=== PATIENT | male | born 1950 | race Two or more races ===

== ENCOUNTER → 2024-09-22 | Outpatient (CLI) | payer MEDICARE, BC, SELFPAY ==
--- NOTE | 2024-09-22 | XR_ITS ---
Examination: CT abdomen and pelvis without contrast. Coronal 3-D reconstructions. Sagittal 2-D reconstructions. Date and time of exam:September 22, 2024 1310 hrs. Indications: Onset left lower abdominal pain and hematuria episodes beginning 6 months ago, history bilateral kidney stones on CT stone study December 04, 2019 CTDI: vol (mGy): 7.26 DLP: (mGycm): 401 Technique: Axial images of the abdomen have been obtained, 3 mm slice thickness Intravenous contrast material has not been administered. Low dose protocols were performed. One or more of the following dose reduction techniques were used; automated exposure control, adjustment of the mA and/or KV according to patient size, use of iterative reconstruction technique. Findings: No focal liver or splenic lesions Absent gallbladder No pancreatic mass Nodular thickening left adrenal gland Multiple bilateral 1 to 3 mm renal calculi, no hydronephrosis or ureteral calculi Normal appendix No bowel obstruction Extensive colonic diverticulosis, no diverticulitis Abnormal uterus, multiple irregular enlarged masses in the uterine body and fundus as well as abnormal enlargement of the cervix Prominent right ovary Prominent osteopenia Impression: Multiple bilateral nonobstructing renal calculi, no hydronephrosis or ureteral calculi No bladder mass or bladder calculi Recommend pelvic sonography follow-up to assess multiple uterine and possibly cervical masses as well as enlarged right ovary
== END | disposition home or self-care (01) ==
LOC: CDIM 11:38
PROVIDERS: PCP Internal Medicine; Referring Provider Internal Medicine; Visit Provider Internal Medicine
DX: N20.0 Calculus of kidney (principal)
CPT/HCPCS: 74176

== ENCOUNTER → 2024-09-23 | Outpatient (CLI) | payer MEDICARE, BC, SELFPAY ==
[2024-09-23 13:11] LABS: Collection Type, Urine Clean Catch; Squamous Epithelial Cell,Urine 0 /hpf (0-5)
[2024-09-23 13:41] LABS: Basophils # (Auto) 0.1 Thou/mm3 (0.0-0.2); Basophils % (Auto) 0 % (0-2.5); Eosinophils % (Auto) 0 % (0-10); Hematocrit 43.7 % (41.0-53.0); Hemoglobin 14.9 g/dL (13.5-16.0); Immature Granulocytes % (Auto) 1 % (0-0); Immature Granulocytes Auto 0.06 Thou/mm3 (0.00-0.00); Lymphocytes # (Auto) 2.3 Thou/mm3 (1.0-4.8); Lymphocytes % (Auto) 19 % (10-50); Mean Corpuscular HGB Conc 34.1 g/dl (31.0-37.0); Mean Corpuscular Hemoglobin 31.8 pg (25.0-35.0); Mean Corpuscular Volume 93 fL (80-100); Monocytes # (Auto) 0.6 Thou/mm3 (0.0-0.8); Monocytes % (Auto) 5 % (0-12); Neutrophils # (Auto) 9.1 Thou/mm3 (1.8-7.7); Neutrophils % (Auto) 75 % (37-80); Nucleated Red Blood Cell % 0 /100 WBC (0); Platelet Count 340 Thou/mm3 (140-440); Red Blood Count 4.69 Miln/mm3 (4.50-5.90); White Blood Count 12.2 Thou/mm3 (3.8-10.6)
[2024-09-23 13:47] LABS: Bilirubin,Urine Negative (Negative); Blood,Urine 2+ (Negative); Clarity,Urine Clear (Clear/Hazy); Color,Urine Lt-Yellow (Lt Yel-Yel); Glucose, Urine Negative (Negative); Ketones,Urine Negative (Negative); Leukocyte Esterase,Urine Negative (Negative); Nitrite,Urine Negative (Negative); Protein,Urine 1+ (Neg - Trace); RBC,Urine 68 /hpf (0-3); Specific Gravity,Urine 1.024 (1.001-1.035); Urobilinogen,Urine Negative mg/dL (0.0-1.0); WBC,Urine 9 /hpf (0-5)
[2024-09-23 13:51] LABS: Glucose Estimated Average 126 mg/dL (80-131)
[2024-09-23 13:52] LABS: PSA Medicare Annual Scrn 5.99 ng/mL (0-4.00)
[2024-09-23 13:57] LABS: Alanine Aminotransferase 22 U/L (10-49); Albumin, Serum 4.6 gm/dL (3.4-4.8); Alkaline Phosphatase 92 U/L (46-116); Anion Gap 9 (7-16); Aspartate Amino Transferase 16 U/L (0-34); BUN/Creatinine Ratio 19 Ratio (12-20); Bilirubin,Total 0.9 mg/dL (0.3-1.2); Blood Urea Nitrogen 19 mg/dL (9-23); Calcium 9.6 mg/dL (8.3-10.6); Calcium (Corrected) 9.6 mg/dL (8.5-10.1); Carbon Dioxide 27.3 mMol/L (20.0-31.0); Chloride 107 mMol/L (98-107); Cholesterol 132 mg/dL (132-200); Globulin 2.3 gm/dL (2.3-3.5); Glucose 114 mg/dL (74-106); HDL Cholesterol 44 mg/dL (40-60); LDL Cholesterol,Calculated 72 mg/dL (0-130); Osmolality,Calculated 288 (275-295); Potassium 4.1 mMol/L (3.4-5.1); Sodium 143 mMol/L (136-145); Thyroid Stimulating Hormone 3.34 uIU/mL (0.55-4.78); Total Protein 6.9 gm/dL (5.7-8.2); Triglycerides 82 mg/dL (30-150); Uric Acid 4.5 mg/dL (3.7-9.2); eGFR > 60 See Note
[2024-09-23 13:59] LABS: Vitamin B12 353 pg/mL (211-911); Vitamin D 25 Hydroxy Total 10.7 ng/mL (7.3-40.2)
== END | disposition home or self-care (01) ==
PROVIDERS: PCP Internal Medicine; Referring Provider Internal Medicine; Visit Provider Surgery
DX: Z00.00 Encounter for general adult medical examination without abnormal findings (principal); N20.0 Calculus of kidney; E11.9 Type 2 diabetes mellitus without complications; R31.9 Hematuria, unspecified; R97.20 Elevated prostate specific antigen [PSA]; D51.9 Vitamin B12 deficiency anemia, unspecified
CPT/HCPCS: 36415; 80053; 80061; 81001; 82306; 82607; 83036; 84153; 84443; 84550; 85025; G0103

== ENCOUNTER → 2025-01-17 | Outpatient (CLI) | payer MEDICARE, BC, SELFPAY ==
--- NOTE | 2025-01-17 13:00 | XR_ITS ---
Examination: CT abdomen and pelvis without contrast. Coronal 3-D reconstructions. Sagittal 2-D reconstructions. Date and time of exam:January 17, 2025 1310 hours Comparison September 22, 2024 INDICATIONS: History multiple kidney stones, hematuria right lower abdominal pain left lower abdominal pain 6 months CTDI: vol (mGy): 720 DLP: (mGycm): 409 Technique: Axial images of the abdomen have been obtained, 3 mm slice thickness Intravenous contrast material has not been administered. Low dose protocols were performed. One or more of the following dose reduction techniques were used; automated exposure control, adjustment of the mA and/or KV according to patient size, use of iterative reconstruction technique. Findings: No intra or extra hepatic biliary tract dilatation Absent gallbladder No pancreatic mass Minimal nodular thickening left adrenal gland 2 mm 1 mm lower pole right renal calculi 2 mm lower pole left renal calculus No ureteral calculi or hydronephrosis Aorta normal size Normal appendix No bowel obstruction Colonic diverticulosis, no diverticulitis Enlarged uterus with areas of calcified fibroid degeneration Lower uterine segment appears prominent Intact urinary bladder Hemangiomatous change L5 T11 IMPRESSION: Nonobstructing bilateral renal calculi Normal appendix Enlarged uterus including cervix, recommend transvaginal transducer abdominal pelvic sonography follow-up
== END | disposition home or self-care (01) ==
LOC: CCTX 12:39
PROVIDERS: PCP Internal Medicine; Referring Provider Surgery; Visit Provider Surgery
DX: N20.0 Calculus of kidney (principal)
CPT/HCPCS: 74176

== ENCOUNTER 2025-03-07 06:20 | Day surgery (SDC) | payer MEDICARE, BC, SELFPAY ==
--- NOTE | 2025-03-02 07:51 | EKG_ITS ---
[facility] Test Date: 2025-03-02 Pat Name: TU MARTINEZ Department: Room: - Gender: Male Tub Mender: ELSY : 1950 Requested By: Leonides Doherty Order Number: [id number] Reading MD: Leonides Doherty Measurements Intervals [place] Rate: 71 P: 62 OK: 203 QRS: 51 QRSD: 102 T: 49 QT: 390 QTc: 424 Interpretive Statements SINUS RHYTHM INCOMPLETE RIGHT BUNDLE BRANCH BLOCK [90+ ms QRS DURATION, TERMINAL R IN V1/V2, 40+ ms S IN I/aVL/V4/V5/V6] Compared to ECG 01/14/2021 09:00:31 Incomplete right bundle-branch block now present /store/S0/[id number]/ecg/[id number].pdf
[2025-03-02 12:26] VITALS: BMI 27.8
[2025-03-02 12:58] LABS: Collection Type, Urine Clean Catch
[2025-03-02 13:15] LABS: Basophils # (Auto) 0.1 Thou/mm3 (0.0-0.2); Basophils % (Auto) 1 % (0-2.5); Eosinophils # (Auto) 0.1 Thou/mm3 (0.0-0.5); Eosinophils % (Auto) 1 % (0-10); Hematocrit 43.8 % (41.0-53.0); Hemoglobin 14.8 g/dL (13.5-16.0); Immature Granulocytes Auto 0.03 Thou/mm3 (0.00-0.00); Lymphocytes # (Auto) 2.3 Thou/mm3 (1.0-4.8); Lymphocytes % (Auto) 24 % (10-50); Mean Corpuscular HGB Conc 33.8 g/dl (31.0-37.0); Mean Corpuscular Hemoglobin 31.6 pg (25.0-35.0); Mean Corpuscular Volume 94 fL (80-100); Monocytes # (Auto) 0.6 Thou/mm3 (0.0-0.8); Monocytes % (Auto) 6 % (0-12); Neutrophils # (Auto) 6.6 Thou/mm3 (1.8-7.7); Neutrophils % (Auto) 68 % (37-80); Nucleated Red Blood Cell # 0.00 Thou/mm3 (0.00-0.00); Nucleated Red Blood Cell % 0 /100 WBC (0); Platelet Count 297 Thou/mm3 (140-440); RDW Standard Deviation 46.0 fL (35.1-43.9); Red Blood Count 4.68 Miln/mm3 (4.50-5.90); White Blood Count 9.7 Thou/mm3 (3.8-10.6)
[2025-03-02 13:23] LABS: Prostate Specific Antigen 5.77 ng/mL (0-4.00)
[2025-03-02 13:24] LABS: Alanine Aminotransferase 21 U/L (10-49); Albumin, Serum 4.4 gm/dL (3.4-4.8); Albumin/Globulin Ratio 2.0 (1.2-2.2); Alkaline Phosphatase 75 U/L (46-116); Anion Gap 9 (7-16); Aspartate Amino Transferase 17 U/L (0-34); BUN/Creatinine Ratio 11 Ratio (12-20); Bilirubin,Total 0.7 mg/dL (0.3-1.2); Blood Urea Nitrogen 11 mg/dL (9-23); Calcium 9.1 mg/dL (8.3-10.6); Calcium (Corrected) 9.1 mg/dL (8.5-10.1); Carbon Dioxide 27.6 mMol/L (20.0-31.0); Chloride 106 mMol/L (98-107); Creatinine (Component) 1.0 mg/dL (0.6-1.3); Estimated Creatinine Clearance 61.8 mL/min (>60); Globulin 2.2 gm/dL (2.3-3.5); Glucose 125 mg/dL (74-106); Osmolality,Calculated 285 (275-295); Potassium 3.4 mMol/L (3.4-5.1); Sodium 143 mMol/L (136-145); Total Protein 6.6 gm/dL (5.7-8.2); eGFR > 60 See Note
[2025-03-02 13:55] LABS: Bilirubin,Urine Negative (Negative); Blood,Urine 2+ (Negative); Color,Urine Yellow (Lt Yel-Yel); Glucose, Urine Negative (Negative); Hyaline Casts,Urine < 1 /hpf (0-1); Ketones,Urine Negative (Negative); Leukocyte Esterase,Urine Positive (Negative); Nitrite,Urine Negative (Negative); PH,Urine 6.5 (5.0-7.0); Protein,Urine 1+ (Neg - Trace); RBC,Urine 176 /hpf (0-3); Specific Gravity,Urine 1.020 (1.001-1.035); Squamous Epithelial Cell,Urine < 1 /hpf (0-5); Urobilinogen,Urine Negative mg/dL (0.0-1.0); WBC,Urine 345 /hpf (0-5)
[2025-03-02 14:16] LABS: Clarity,Urine Hazy (Clear/Hazy)
--- NOTE | 2025-03-06 14:25 | ESHP_ITS ---
RE: TU MARTINEZ : 1950 DATE OF ADMISSION: 03/06/2025 HISTORY OF PRESENT ILLNESS: The patient is an elderly male with a history of previous bladder stones. Now he has been complaining of dark urine. Cystoscopy and CT scan of the abdomen and pelvis revealed multiple bladder stones. He is now scheduled to have cystoscopy and laser lithotripsy for multiple bladder stones. The patient had TURP done before. He had a previous bladder stones. He had a hernia repair done in the past, colonoscopy and EGD. He has no children. ALLERGIES TO PENICILLIN. The patient is diabetic and takes metformin. The patient has a history of urinary calculi. He had a lithotripsy done in 2016. He had a transurethral resection of prostate done which was in 2020. The patient had a large prostate with a median lobe. He has been urinating well except he has had some hematuria. CT scan revealed 2 mm and 1 mm right renal stones, 2 mm left renal stone, and multiple bladder calculi. PLAN: As above. Planned procedure risks and complications have been discussed with the patient. The patient has understood them and agreed to proceed. cc: Rosey Hollis MD DT: 11:11:56 TT: 14:24:00 Ref: [id number] - TID: [id number]
[2025-03-07] VITALS (9 sets, daily range): BP systolic 104–141; BP diastolic 77–88; PULSE 68–94; RESP 12–19; TEMP 36.6–36.9; O2SAT 96–100; BMI 27.9
--- NOTE | 2025-03-07 07:23 | CHAP ---
Visited with patient who told me about what he had been going through. We talked for a bit and then prayed together.
--- NOTE | 2025-03-07 09:24 | SUR.PHASEI ---
pt received from OR in recovery bay 3. pt asleep but responds to voice, breathing unlabored on nc 2l. v/s stable. pt has rivera catheter in place. report received from Keyshawn PRO and Dr. Dillard.
--- NOTE | 2025-03-07 09:31 | XR_ITS ---
Examination: Abdomen AP single view Technique: AP portable supine abdomen, single view Exam date and time: March 07, 2025 0932 hours INDICATIONS: Postop abdominal pain FINDINGS: Nonobstructive bowel gas pattern. No free air Surgical clips upper right abdomen IMPRESSION: Nonobstructive bowel gas pattern
[2025-03-07] MEDS: fentaNYL CIT INJ 50 mCg/ML AMP 2ML IVP (09:58)
--- NOTE | 2025-03-07 10:25 | SUR.PHASEII ---
pt able to tolerate oral fluids without difficulty swallowing or nausea/vomiting.
--- NOTE | 2025-03-07 11:05 | SUR.PHASEII ---
pt awake and alert, breathing unlabored on room air. v/s stable. pt has rivera cath in place. d/c instructions given with friend Ismael in room, all questions answered. pt d/c via wheelchair with all belongings.
--- NOTE | 2025-03-07 15:59 | ESOP_ITS ---
RE: TU MARTINEZ : 1950 DATE OF OPERATION: 03/07/2025 PREOPERATIVE DIAGNOSES: Multiple bladder calculi, prostatic obstruction. POSTOPERATIVE DIAGNOSES: Multiple bladder calculi, prostatic obstruction. PROCEDURES PERFORMED: Cystoscopy and cystolithotripsy with holmium laser for the multiple bladder calculi. ANESTHESIA: General by Dr. Dillard. INDICATION: The patient is a 75-year-old male with history of multiple urinary calculi. He also has a prostatism and prostatic obstruction. He had a transurethral resection of prostate done in the past. He also had bladder stones removed in the past through the urethra. The patient has been having some gross hematuria. Cystoscopy revealed multiple bladder calculi. The patient is now scheduled to have cystolithotripsy with laser. Planned procedure, risks, and complications have been discussed with the patient. The patient understood them and agreed to proceed. DESCRIPTION OF PROCEDURE: After the patient was brought to the operating table under adequate general anesthesia and dorsal lithotomy position, parts were prepped and draped in the usual fashion. A 25-Lithuanian cystoscope was then passed per urethra, which revealed adequate urethral meatus, normal-appearing urethra. There is some recurrence of prostate at the apex and some lateral lobes. Scope was introduced into the bladder. There are multiple bladder calculi. The urine appeared to be dark with some blood. The patient has been bleeding because of his bladder stones. There are no intravesical tumors. Bladder appeared to be moderately trabeculated with cystitis. Using 1000 micron holmium fiber lithotripsy was done for multiple bladder calculi. These stones are about 5-10 mm in size, but they were multiple. All the stones were broken and then they were evacuated out from the bladder by using [facility] evacuator. At the end of the procedure, there are no more bladder stones left. A 20-Lithuanian two-way Sosa catheter was then inserted into the bladder. We have to use a guidewire to put the Sosa in because of his prostatic obstruction. Irrigation of catheter revealed clear return. Catheter was then connected to a sterile bag and the patient was then transferred to the recovery room in a satisfactory condition having tolerated the entire procedure well. DT: 09:37:47 TT: 15:57:00 Ref: [id number] - TID: [id number]
[2025-03-15 17:49] LABS: Stone Analysis Source STONE
[2025-03-16 06:48] LABS: Stone Analysis Weight 1.368 g
== END 2025-03-07 11:05 | disposition home or self-care (01) ==
PROVIDERS: Anesthesiology; PCP Internal Medicine; Referring Provider Surgery; Visit Provider Surgery
PROC: (CPT 52325; principal; 2025-03-07 08:30)
DX: N21.0 Calculus in bladder (principal); N40.3 Nodular prostate with lower urinary tract symptoms; N13.8 Other obstructive and reflux uropathy; E11.9 Type 2 diabetes mellitus without complications; Z01.810 Encounter for preprocedural cardiovascular examination; N20.0 Calculus of kidney; I45.10 Unspecified right bundle-branch block; R31.0 Gross hematuria
CPT/HCPCS: 52317; 36415; 74018; 80053; 81001; 82365; 84153; 85025; 87077; 87086; 87186; 93005; A4217; A4649; J0694; J1100; J2371; J2405; J2704; J2710; J3010; J3490; J1596; J1805